=== PATIENT | female | born 1975 | race Two or more races ===

== ENCOUNTER → 2017-07-08 | Outpatient (CLI) | payer OTHER ==
[~2017-07-08] MED LIST: KETO10TA2 PO; ORPH100T PO
== END | disposition home or self-care (01) ==
LOC: SONOGRAMA 10:18
DX: E04.1 Nontoxic single thyroid nodule (principal)

== ENCOUNTER 2017-07-09 06:44 | Outpatient (CLI) | payer OTHER | END 2017-07-09 06:59 | disposition home or self-care (01) | LOC: LAB 06:44 | DX: E03.8 Other specified hypothyroidism (principal); E55.9 Vitamin D deficiency, unspecified; E11.9 Type 2 diabetes mellitus without complications; E78.2 Mixed hyperlipidemia ==

== ENCOUNTER 2017-08-13 09:01 | Outpatient (CLI) | payer OTHER | END 2017-08-13 09:17 | disposition home or self-care (01) | LOC: LAB 09:01 | DX: M79.1 Myalgia (principal); M25.50 Pain in unspecified joint ==

== ENCOUNTER 2017-08-20 10:17 | Outpatient (CLI) | payer OTHER | END 2017-08-20 15:52 | disposition home or self-care (01) | LOC: SONOGRAMA 10:17 | DX: R22.2 Localized swelling, mass and lump, trunk (principal) ==

== ENCOUNTER 2017-10-30 12:37 | Emergency (ER) | payer OTHER ==
[~2017-10-30] VITALS: Ht 172.7 cm; Wt 63.5 kg
[2017-10-30] MEDS ORDERED: SYNTHROID50 MCG (12:53)
== END 2017-10-30 14:29 | disposition home or self-care (01) ==
LOC: ER 12:37
DX: R51 Headache (principal)

== ENCOUNTER 2017-11-02 16:53 | Emergency (ER) | payer OTHER ==
[~2017-11-02] VITALS: Ht 152.4 cm; Wt 67.1 kg
[~2017-11-02 16:53] MED LIST changes: +SYNTHROID50 MCG
[2017-11-02] MEDS ORDERED: HYZAAR 50-12.51 EACH (17:33)
[2017-11-02] MEDS ORDERED: CALAN SR120 MG (17:34)
[2017-11-02] MEDS ORDERED: COZAAR25 MG PO (23:30)
[2017-11-02] MEDS ORDERED: DIAZEPAM10 MG PO (23:30)
== END 2017-11-03 00:41 | disposition home or self-care (01) ==
LOC: ER 16:53
DX: G44.209 Tension-type headache, unspecified, not intractable (principal)

== ENCOUNTER 2017-11-07 06:22 | Emergency (ER) | payer OTHER ==
[~2017-11-07] VITALS: Ht 152.4 cm; Wt 67.1 kg
[~2017-11-07 06:22] MED LIST changes: +CALAN SR120 MG; +COZAAR25 MG PO; +DIAZEPAM10 MG PO; +HYZAAR 50-12.51 EACH
== END 2017-11-07 10:10 | disposition home or self-care (01) ==
LOC: ER 06:22
DX: B34.9 Viral infection, unspecified (principal)

== ENCOUNTER 2017-11-19 08:43 | Outpatient (CLI) | payer OTHER | END 2017-11-19 15:23 | disposition home or self-care (01) | LOC: NUCLEAR 08:43 | DX: I10 Essential (primary) hypertension (principal) ==

== ENCOUNTER 2020-05-14 11:59 | Emergency (ER) | payer OTHER ==
[~2020-05-14] VITALS: Ht 152.4 cm; Wt 68.0 kg
[2020-05-14] MEDS ORDERED: TOPROL XL50 M1 PO (12:52)
[2020-05-14] MEDS ORDERED: FLECAINIDE ACET50 MG PO (12:52)
[2020-05-14] MEDS ORDERED: CELEBREX200MG PO (16:03)
[2020-05-14] MEDS ORDERED: ULTRAM50 MG PO (16:03)
[2020-05-14] MEDS ORDERED: SKELAXIN800 MG PO (16:03)
== END 2020-05-14 16:28 | disposition home or self-care (01) ==
LOC: ER 11:59
DX: M94.0 Chondrocostal junction syndrome [Tietze] (principal)

== ENCOUNTER 2023-05-07 11:02 | Outpatient (CLI) | payer OTHER ==
[~2023-05-07 11:02] MED LIST changes: +CELEBREX200MG PO; +FLECAINIDE ACET50 MG PO; +SKELAXIN800 MG PO; +TOPROL XL50 M1 PO; +ULTRAM50 MG PO
== END 2023-05-07 11:05 | disposition home or self-care (01) ==
LOC: SONOGRAMA 11:02
PROVIDERS: ATTEND Pathology Anatomic Pathology & Clinical Pathology
DX: D36.0 Benign neoplasm of lymph nodes (principal)

== ENCOUNTER 2024-04-10 13:13 | Emergency (ER) | payer OTHER ==
[~2024-04-10] VITALS: Ht 152.4 cm; Wt 73.0 kg
[2024-04-10] MEDS ORDERED: DEXAMETHASONE SODIUM PHOSPHATE 4 MG/ML VIAL IM STA (16:13)
[2024-04-10] MEDS ORDERED: DIPHENHYDRAMINE HCL 50 MG/ML VIAL 1ML IM STA (16:13)
== END 2024-04-10 16:45 | disposition home or self-care (01) ==
LOC: ER 13:15
DX: L29.89 Other pruritus (principal)

== ENCOUNTER 2024-06-22 07:05 | Outpatient (CLI) | payer OTHER | END 2024-06-22 07:06 | disposition home or self-care (01) | LOC: NUCLEAR 07:05 | PROVIDERS: ATTEND Internal Medicine Rheumatology | DX: M05.79 Rheumatoid arthritis with rheumatoid factor of multiple sites without organ or systems involvement (principal) ==

== ENCOUNTER 2025-03-13 07:04 | Emergency (ER) | payer OTHER ==
[~2025-03-13] VITALS: Ht 152.4 cm; Wt 68.0 kg
[2025-03-13] MEDS ORDERED: ONDANSETRON HCL 2 MG/ML VIAL IV ONE (07:30)
[2025-03-13] MEDS ORDERED: 0.9 % SODIUM CHLORIDE 500 ML IV ONE (07:30)
[2025-03-13] MEDS ORDERED: HYOSCYAMINE SULFATE 0.125 MG TAB.SUBL SL ONE (07:30)
[2025-03-13] MEDS ORDERED: ONDANSETRON HCL 2 MG/ML VIAL ONE (07:32)
[2025-03-13] MEDS ORDERED: HYOSCYAMINE SULFATE 0.125 MG TAB.SUBL ONE (07:32)
[2025-03-13 07:56] LABS: BASO % 0.3 % (0.1-1.2); EOS # 0.01 (0.04-0.54); EOS % 0.1 % (0.7-7.0); LYMPH # 1.26 (1.18-3.74); LYMPH % 12.2 % (19.3-53.1); MEAN PLATELET VOLUME 9.00 fl (9.4-12.4); MONO # 0.30 (0.24-0.82); MONO % 2.9 % (4.7-12.5); NEUT # 8.66 (1.56-6.13); NEUT % 84.1 % (34.0-71.1); RED CELL DISTRIBUTION WIDTH 13.3 % (11.6-14.4)
[2025-03-13 08:28] LABS: ALT/SGPT 27.0 U/L (12-78); AST/SGOT 13.0 U/L (15-37); BILIRUBIN TOTAL 0.69 mg/dL (0.3-1.2); BUN CREA RATIO 17.0 (7.0-25.0); CREATININE SERUM 0.69 mg/dL (0.55-1.02); GFR 90.05; GLOBULINA 3.6 G/DL (2.4-3.5); GLUCOSE FASTING 112.0 mg/dL (65-100); OSMOLALITY SERUM 278.0 MOSM/KG (275-295)
== END 2025-03-13 09:13 | disposition home or self-care (01) ==
LOC: ER 07:05
PROVIDERS: General Practice
DX: K29.70 Gastritis, unspecified, without bleeding (principal); I10 Essential (primary) hypertension